=== PATIENT | male | born 1955 | race Caucasian/White ===

== ENCOUNTER 2017-12-07 18:26 | Inpatient (IN) | payer MEDICARE, OTHER ==
[~2017-12-07] VITALS: Ht 180.3 cm; Wt 57.3 kg
[2017-12-07] MEDS ORDERED: TAMS0.4C32 PO (18:55)
[2017-12-07] MEDS ORDERED: ATEN25TA PO (18:55)
[2017-12-07] MEDS ORDERED: INSLAN SQ (18:55)
[2017-12-07] MEDS ORDERED: LORA0.5T2 PO (18:55)
[2017-12-07] MEDS ORDERED: DOCU250C91 PO (18:55)
[2017-12-07] MEDS ORDERED: PARO20TA24 PO (18:55)
[2017-12-07] MEDS ORDERED: FINA5TAB41 PO (18:55)
[2017-12-07] MEDS ORDERED: MULT-248 PO (18:55)
[2017-12-07] MEDS ORDERED: BENZ1TAB10 PO (18:55)
[2017-12-07 19:18] LABS: BASOPHILS % (AUTO) 0.7 % (0.0-2.0); EOSINOPHILS % (AUTO) 0.6 % (1.0-6.0); HEMATOCRIT 44.8 % (41-53); HEMOGLOBIN 15.5 g/dL (13.5-17.5); LYMPHOCYTES # (AUTO) 3.2 K/uL (1.0-4.8); LYMPHOCYTES % (AUTO) 26.4 % (22.0-44.0); MEAN CORPUSCULAR HGB CONC 34.5 G/dL (31.0-37.0); MEAN CORPUSCULAR VOLUME 95 fL (80-100); MONOCYTES # (AUTO) 0.8 K/uL (0.1-1.0); MONOCYTES % (AUTO) 6.6 % (2.0-9.0); NEUTROPHILS % (AUTO) 65.7 % (40.0-70.0); PLATELET COUNT (AUTO) 265 K/uL (150-450); RED CELL DISTRIBUTION WIDTH 12.5 % (11.5-14.5)
[2017-12-07 19:19] LABS: GLUCOSE,POINT OF CARE 162 MG/DL (70-110)
[2017-12-07 19:26] LABS: ANION GAP 8 mmol/L (8-16); CALCIUM, TOTAL 10.6 mg/dL (8.8-10.5); CARBON DIOXIDE 29 mmol/L (22-29); CHLORIDE 108 mmol/L (98-107); CREATININE 0.98 mg/dL (0.60-1.30); GLOMERULAR FILTR. RATE CALC > 60 mL/min (>60); GLUCOSE,RANDOM 166 mg/dL (70-110); POTASSIUM 4.8 mmol/L (3.5-5.1); SODIUM SERUM 145 mmol/L (136-145); UREA NITROGEN, BLOOD 34 mg/dL (7-18)
[2017-12-07] MEDS ORDERED: HALOPERIDOL LACTATE 5 MG/ML VIAL IM ONE (19:30)
[2017-12-07] MEDS ORDERED: LORazepam 2 MG/ML VIAL IM ONE (19:30)
[2017-12-07 19:33] LABS: ALANINE AMINOTRANSFERASE 71 U/L (12-78); ALBUMIN 4.4 g/dL (3.4-5.0); ALKALINE PHOSPHATASE 137 U/L (46-116); ASPARTATE AMINOTRANSFERASE 42 U/L (15-37); BILIRUBIN,TOTAL 0.5 mg/dL (0.1-1.0)
[2017-12-07] MEDS ORDERED: HALOPERIDOL 5 MG TABLET PO PRN (20:30)
[2017-12-07 21:36] LABS: CHOL/HDL RATIO 2.2 (4.2-7.3); CHOLESTEROL 176 mg/dL (131-200); FREE T4 (FREE THYROXINE) 0.95 ng/dL (0.76-1.46); HDL CHOLESTEROL 81 mg/dL (40-60); LDL CHOL (CALC.) 47 mg/dL (0-130); TRIGLYCERIDES 241 mg/dL (15-150)
[2017-12-07] MEDS: ZOLPIDEM TARTRATE 10 MG TABLET PO PRN (21:48)
[2017-12-08 00:20] VITALS: BP 110/76
[2017-12-08 08:30] VITALS: BP 106/76
[2017-12-08] MEDS: LORazepam 1 MG TABLET PO PRN (14:27)
[2017-12-08] MEDS: NICOTINE 21 MG/24 HOUR PATCH TD SCH (14:30)
[2017-12-08 16:08] VITALS: BP 127/74
[2017-12-08] MEDS ORDERED: PROMETHAZINE HCL 25 MG TABLET PO PRN (16:45)
[2017-12-08] MEDS ORDERED: GuaiFENesin/D-METHORPHAN [SUGAR-FREE] 200-20MG/10 ML SYRUP UDCUP PO PRN (16:45)
[2017-12-08] MEDS ORDERED: MAGNESIUM HYDROXIDE SUSPENSION 30 ML UDCUP PO PRN (16:45)
[2017-12-08] MEDS ORDERED: MAG HYDROX/AL HYDROX/SIMETH ES 30 ML SUSPENSION UDCUP PO PRN (16:45)
[2017-12-08] MEDS ORDERED: LOPERAMIDE HCL 2 MG CAPSULE PO PRN (16:45)
[2017-12-08] MEDS ORDERED: ACETAMINOPHEN 325 MG TABLET PO PRN (16:45)
[2017-12-08] MEDS: THIAMINE HCL 100 MG TABLET PO SCH (18:32)
[2017-12-08] MEDS: OLANZapine 10 MG RAPDIS TABLET PO SCH (20:21)
[2017-12-08] MEDS ORDERED: BENZOCAINE/MENTHOL LOZENGE MM PRN (22:30)
[2017-12-08] MEDS ORDERED: CloNIDine HCL 0.1 MG TABLET PO PRN (22:30)
[2017-12-08] MEDS ORDERED: IBUPROFEN 600 MG TABLET PO PRN (22:30)
[2017-12-08] MEDS ORDERED: BACITRACIN 28.4 GM OINTMENT TP PRN (22:30)
[2017-12-08] MEDS ORDERED: ALBUTEROL SULFATE HFA 90 MCG/PUFF 8 GM INHALER IH PRN (22:30)
[2017-12-08] MEDS ORDERED: PETROLATUM,WHITE 71 GM JELLY TP PRN (22:30)
[2017-12-08] MEDS ORDERED: ONDANSETRON HCL 4 MG TABLET PO PRN (22:30)
[2017-12-09] MEDS: FOLIC ACID 1 MG TABLET PO SCH (08:28)
[2017-12-09] MEDS: THIAMINE HCL 100 MG TABLET PO SCH ×2 (08:28→17:20)
[2017-12-09] MEDS: FINASTERIDE 5 MG TABLET PO SCH (08:29)
[2017-12-09] MEDS: TAMSULOSIN HCL 0.4 MG CAPSULE PO SCH (08:29)
[2017-12-09] MEDS: NALTREXONE HCL 50 MG TABLET PO SCH (08:29)
[2017-12-09] MEDS: NICOTINE 21 MG/24 HOUR PATCH TD SCH (08:29)
[2017-12-09] MEDS: FLUoxetine HCL 20 MG CAPSULE PO SCH (08:29)
[2017-12-09] MEDS: ATENOLOL 25 MG TABLET PO SCH (08:29)
[2017-12-09] MEDS: MULTIVITAMINS WITH MINERALS, THERAPEUTIC TABLET PO SCH (08:31)
[2017-12-09] MEDS: LORazepam 1 MG TABLET PO PRN ×2 (08:32→13:52)
[2017-12-09] MEDS: BENZTROPINE MESYLATE 1 MG TABLET PO SCH ×3 (08:32→17:20)
[2017-12-09] MEDS ORDERED: MULTIVITAMINS WITH MINERALS, THERAPEUTIC TABLET PO SCH (09:00)
[2017-12-09] MEDS: HydrOXYzine PAMOATE 50 MG CAPSULE PO PRN ×2 (09:03→13:52)
[2017-12-09] MEDS: OLANZapine 5 MG RAPDIS TABLET PO PRN ×2 (09:03→13:52)
[2017-12-09 09:44] LABS: GLUCOMETER DEV NAME(LOC) 3EX 1; GLUCOSE,POINT OF CARE 194 MG/DL (70-110)
[2017-12-09] MEDS: INSULIN GLARGINE,HUM.REC.ANLOG 100 UNITS/ML SQ SCH (09:46)
[2017-12-09 16:30] VITALS: BP 133/77
[2017-12-09 18:23] LABS: GLUCOMETER DEV NAME(LOC) 3EX 1; GLUCOSE,POINT OF CARE 176 MG/DL (70-110)
[2017-12-09] MEDS ORDERED: DEXTROSE 50%-WATER 25 GM/50 ML SYRINGE IVP PRN (20:00)
[2017-12-09] MEDS: OLANZapine 10 MG RAPDIS TABLET PO SCH (20:18)
[2017-12-09 21:58] LABS: GLUCOMETER DEV NAME(LOC) 3EX 1; GLUCOSE,POINT OF CARE 147 MG/DL (70-110)
[2017-12-09] MEDS: ZOLPIDEM TARTRATE 10 MG TABLET PO PRN (22:40)
[2017-12-09] MEDS: INSULIN LISPRO 100 UNITS/ML SQ PRN (23:18)
[2017-12-10 08:30] VITALS: BP 99/59
[2017-12-10] MEDS: THIAMINE HCL 100 MG TABLET PO SCH ×2 (08:59→17:40)
[2017-12-10] MEDS: FINASTERIDE 5 MG TABLET PO SCH (08:59)
[2017-12-10] MEDS: MULTIVITAMINS WITH MINERALS, THERAPEUTIC TABLET PO SCH (08:59)
[2017-12-10] MEDS: FOLIC ACID 1 MG TABLET PO SCH (08:59)
[2017-12-10] MEDS: TAMSULOSIN HCL 0.4 MG CAPSULE PO SCH (08:59)
[2017-12-10] MEDS: FLUoxetine HCL 20 MG CAPSULE PO SCH (08:59)
[2017-12-10] MEDS: NALTREXONE HCL 50 MG TABLET PO SCH (08:59)
[2017-12-10] MEDS: BENZTROPINE MESYLATE 1 MG TABLET PO SCH ×3 (08:59→17:40)
[2017-12-10] MEDS: INSULIN GLARGINE,HUM.REC.ANLOG 100 UNITS/ML SQ SCH (09:22)
[2017-12-10] MEDS: NICOTINE 21 MG/24 HOUR PATCH TD SCH (09:23)
[2017-12-10 11:18] LABS: GLUCOMETER DEV NAME(LOC) 3EX 1; GLUCOSE,POINT OF CARE 149 MG/DL (70-110)
[2017-12-10] MEDS: ATENOLOL 25 MG TABLET PO SCH (11:19)
[2017-12-10] MEDS: INSULIN LISPRO 100 UNITS/ML SQ PRN (11:21)
[2017-12-10 12:20] VITALS: BP 113/71
[2017-12-10] MEDS: LORazepam 1 MG TABLET PO PRN (12:24)
[2017-12-10] MEDS: OLANZapine 5 MG RAPDIS TABLET PO PRN (12:24)
[2017-12-10 16:08] VITALS: BP 129/60
[2017-12-10 17:43] LABS: GLUCOMETER DEV NAME(LOC) 3EX 1; GLUCOSE,POINT OF CARE 123 MG/DL (70-110)
[2017-12-10] MEDS: OLANZapine 10 MG RAPDIS TABLET PO SCH (21:53)
[2017-12-11 00:43] VITALS: BP 116/58
[2017-12-11 05:44] LABS: GLUCOMETER DEV NAME(LOC) 3EI C; GLUCOSE,POINT OF CARE 112 MG/DL (70-110)
[2017-12-11] MEDS: NICOTINE 21 MG/24 HOUR PATCH TD SCH (07:44)
[2017-12-11] MEDS: FOLIC ACID 1 MG TABLET PO SCH (07:45)
[2017-12-11] MEDS: NALTREXONE HCL 50 MG TABLET PO SCH (07:45)
[2017-12-11] MEDS: MULTIVITAMINS WITH MINERALS, THERAPEUTIC TABLET PO SCH (07:45)
[2017-12-11] MEDS: OLANZapine 5 MG RAPDIS TABLET PO PRN ×2 (07:45→11:56)
[2017-12-11] MEDS: LORazepam 1 MG TABLET PO PRN ×2 (07:45→11:56)
[2017-12-11] MEDS: BENZTROPINE MESYLATE 1 MG TABLET PO SCH ×3 (07:45→16:03)
[2017-12-11] MEDS: ATENOLOL 25 MG TABLET PO SCH (07:45)
[2017-12-11] MEDS: FINASTERIDE 5 MG TABLET PO SCH (07:45)
[2017-12-11] MEDS: FLUoxetine HCL 20 MG CAPSULE PO SCH (07:45)
[2017-12-11] MEDS: THIAMINE HCL 100 MG TABLET PO SCH ×2 (07:45→16:03)
[2017-12-11] MEDS: TAMSULOSIN HCL 0.4 MG CAPSULE PO SCH (07:45)
[2017-12-11] MEDS: HydrOXYzine PAMOATE 50 MG CAPSULE PO PRN ×2 (07:48→11:56)
[2017-12-11 08:00] VITALS: BP 111/54
[2017-12-11] MEDS: INSULIN GLARGINE,HUM.REC.ANLOG 100 UNITS/ML SQ SCH (08:00)
[2017-12-11 11:33] LABS: GLUCOMETER DEV NAME(LOC) 3EX 1; GLUCOSE,POINT OF CARE 190 MG/DL (70-110)
[2017-12-11 16:35] VITALS: BP 125/78
[2017-12-11 17:08] LABS: GLUCOMETER DEV NAME(LOC) 3EX 1; GLUCOSE,POINT OF CARE 150 MG/DL (70-110)
[2017-12-11] MEDS: INSULIN LISPRO 100 UNITS/ML SQ PRN ×2 (17:24→20:50)
[2017-12-11] MEDS: OLANZapine 10 MG RAPDIS TABLET PO SCH (20:48)
[2017-12-11 20:54] LABS: GLUCOMETER DEV NAME(LOC) 3EX 1; GLUCOSE,POINT OF CARE 188 MG/DL (70-110)
[2017-12-11] MEDS: ZOLPIDEM TARTRATE 10 MG TABLET PO PRN (23:06)
[2017-12-12 00:34] VITALS: BP 113/60
[2017-12-12] MEDS: NALTREXONE HCL 50 MG TABLET PO SCH (09:32)
[2017-12-12] MEDS: FOLIC ACID 1 MG TABLET PO SCH (09:32)
[2017-12-12] MEDS: TAMSULOSIN HCL 0.4 MG CAPSULE PO SCH (09:32)
[2017-12-12] MEDS: FLUoxetine HCL 20 MG CAPSULE PO SCH (09:32)
[2017-12-12] MEDS: MULTIVITAMINS WITH MINERALS, THERAPEUTIC TABLET PO SCH (09:32)
[2017-12-12] MEDS: ATENOLOL 25 MG TABLET PO SCH (09:32)
[2017-12-12] MEDS: BENZTROPINE MESYLATE 1 MG TABLET PO SCH ×4 (09:32→20:25)
[2017-12-12] MEDS: FINASTERIDE 5 MG TABLET PO SCH (09:32)
[2017-12-12] MEDS: THIAMINE HCL 100 MG TABLET PO SCH ×2 (09:32→16:29)
[2017-12-12] MEDS: NICOTINE 21 MG/24 HOUR PATCH TD SCH (09:39)
[2017-12-12] MEDS: INSULIN GLARGINE,HUM.REC.ANLOG 100 UNITS/ML SQ SCH (10:14)
[2017-12-12 11:45] LABS: GLUCOMETER DEV NAME(LOC) 3EX 1; GLUCOSE,POINT OF CARE 178 MG/DL (70-110)
[2017-12-12] MEDS: INSULIN LISPRO 100 UNITS/ML SQ PRN ×2 (11:50→22:12)
[2017-12-12 15:30] VITALS: BP 119/60
[2017-12-12 16:00] VITALS: BP 119/60
[2017-12-12] MEDS: LORazepam 1 MG TABLET PO PRN (19:14)
[2017-12-12] MEDS: OLANZapine 10 MG RAPDIS TABLET PO SCH (20:25)
[2017-12-12 20:34] LABS: GLUCOMETER DEV NAME(LOC) 3EX 1; GLUCOSE,POINT OF CARE 147 MG/DL (70-110)
[2017-12-13 06:09] LABS: GLUCOMETER DEV NAME(LOC) 3EI C; GLUCOSE,POINT OF CARE 72 MG/DL (70-110)
[2017-12-13] MEDS: MULTIVITAMINS WITH MINERALS, THERAPEUTIC TABLET PO SCH (09:00)
[2017-12-13] MEDS: BENZTROPINE MESYLATE 1 MG TABLET PO SCH ×2 (09:00→20:43)
[2017-12-13] MEDS: FOLIC ACID 1 MG TABLET PO SCH (09:00)
[2017-12-13] MEDS: NALTREXONE HCL 50 MG TABLET PO SCH (09:00)
[2017-12-13] MEDS: THIAMINE HCL 100 MG TABLET PO SCH ×2 (09:01→16:29)
[2017-12-13] MEDS: FINASTERIDE 5 MG TABLET PO SCH (09:01)
[2017-12-13] MEDS: FLUoxetine HCL 20 MG CAPSULE PO SCH (09:01)
[2017-12-13] MEDS: TAMSULOSIN HCL 0.4 MG CAPSULE PO SCH (09:02)
[2017-12-13] MEDS: ATENOLOL 25 MG TABLET PO SCH (09:02)
[2017-12-13] MEDS: NICOTINE 21 MG/24 HOUR PATCH TD SCH (09:09)
[2017-12-13] MEDS: INSULIN GLARGINE,HUM.REC.ANLOG 100 UNITS/ML SQ SCH (09:11)
[2017-12-13 11:53] LABS: GLUCOMETER DEV NAME(LOC) 3EX 1; GLUCOSE,POINT OF CARE 91 MG/DL (70-110)
[2017-12-13 16:13] LABS: GLUCOMETER DEV NAME(LOC) 3EX 1; GLUCOSE,POINT OF CARE 93 MG/DL (70-110)
[2017-12-13] MEDS: LORazepam 1 MG TABLET PO PRN ×2 (16:30→22:45)
[2017-12-13 16:46] VITALS: BP 115/68
[2017-12-13 17:53] LABS: APPEARANCE,URINE CLEAR (CLEAR); BILIRUBIN,URINE NEGATIVE (NEGATIVE); GLUCOSE, URINE (UA) NEGATIVE (NEGATIVE); KETONES,URINE TRACE mg/dL (NEGATIVE); LEUKOCYTE ESTERASE ,URINE TRACE (NEGATIVE); NITRATE,URINE NEGATIVE (NEGATIVE); OCCULT BLOOD,URINE NEGATIVE (NEGATIVE); PH,URINE 5.5 (5.0-8.0); PROTEIN,URINE NEGATIVE (NEGATIVE)
[2017-12-13 18:17] LABS: BACTERIA,URINE Moderate /HPF (None Seen); RBC,URINE 0-2 /HPF (0-2)
[2017-12-13 18:18] LABS: SQUAMOUS EPITHELIAL CELL,UR Rare /LPF (None Seen)
[2017-12-13] MEDS: OLANZapine 10 MG RAPDIS TABLET PO SCH (20:43)
[2017-12-13] MEDS: ZOLPIDEM TARTRATE 10 MG TABLET PO PRN (20:43)
[2017-12-13 20:53] LABS: GLUCOMETER DEV NAME(LOC) 3EX 1; GLUCOSE,POINT OF CARE 102 MG/DL (70-110)
[2017-12-14] MEDS: OLANZapine 5 MG RAPDIS TABLET PO PRN (00:50)
[2017-12-14 06:19] LABS: GLUCOMETER DEV NAME(LOC) 3EI C; GLUCOSE,POINT OF CARE 68 MG/DL (70-110)
[2017-12-14 06:53] LABS: GLUCOMETER DEV NAME(LOC) 3EX 1; GLUCOSE,POINT OF CARE 121 MG/DL (70-110)
[2017-12-14] MEDS: NALTREXONE HCL 50 MG TABLET PO SCH (08:57)
[2017-12-14] MEDS: BENZTROPINE MESYLATE 1 MG TABLET PO SCH (08:57)
[2017-12-14] MEDS: FOLIC ACID 1 MG TABLET PO SCH (08:57)
[2017-12-14] MEDS: ATENOLOL 25 MG TABLET PO SCH (08:57)
[2017-12-14] MEDS: MULTIVITAMINS WITH MINERALS, THERAPEUTIC TABLET PO SCH (08:57)
[2017-12-14] MEDS: TAMSULOSIN HCL 0.4 MG CAPSULE PO SCH (08:57)
[2017-12-14] MEDS: FINASTERIDE 5 MG TABLET PO SCH (08:57)
[2017-12-14] MEDS: FLUoxetine HCL 20 MG CAPSULE PO SCH (08:57)
[2017-12-14 09:10] VITALS: BP 92/71
[2017-12-14] MEDS: INSULIN GLARGINE,HUM.REC.ANLOG 100 UNITS/ML SQ SCH (09:20)
[2017-12-14] MEDS: THIAMINE HCL 100 MG TABLET PO SCH ×2 (09:22→15:52)
[2017-12-14] MEDS: NICOTINE 21 MG/24 HOUR PATCH TD SCH (09:27)
[2017-12-14 11:24] LABS: GLUCOMETER DEV NAME(LOC) 3EX 1; GLUCOSE,POINT OF CARE 183 MG/DL (70-110)
[2017-12-14] MEDS: INSULIN LISPRO 100 UNITS/ML SQ PRN ×2 (11:32→21:43)
[2017-12-14] MEDS ORDERED: FLUO-191 PO (16:17)
[2017-12-14] MEDS ORDERED: NALT50TA PO (16:17)
[2017-12-14 17:04] LABS: GLUCOMETER DEV NAME(LOC) 3EX 1; GLUCOSE,POINT OF CARE 61 MG/DL (70-110)
[2017-12-14] MEDS ORDERED: ARIP20TA PO (17:11)
[2017-12-14 17:34] LABS: GLUCOMETER DEV NAME(LOC) 3EX 1; GLUCOSE,POINT OF CARE 158 MG/DL (70-110)
[2017-12-14 17:48] VITALS: BP 107/65
[2017-12-14] MEDS: ZOLPIDEM TARTRATE 10 MG TABLET PO PRN (21:13)
[2017-12-14] MEDS: LORazepam 1 MG TABLET PO PRN (21:14)
[2017-12-14 21:34] LABS: GLUCOMETER DEV NAME(LOC) 3EX 1; GLUCOSE,POINT OF CARE 148 MG/DL (70-110)
[2017-12-15 00:44] VITALS: BP 107/67
[2017-12-15] MEDS: LORazepam 1 MG TABLET PO PRN ×3 (01:22→15:04)
[2017-12-15 05:44] LABS: GLUCOMETER DEV NAME(LOC) 3EI C; GLUCOSE,POINT OF CARE 110 MG/DL (70-110)
[2017-12-15] MEDS: FOLIC ACID 1 MG TABLET PO SCH (08:02)
[2017-12-15] MEDS: ATENOLOL 25 MG TABLET PO SCH (08:02)
[2017-12-15] MEDS: NALTREXONE HCL 50 MG TABLET PO SCH (08:02)
[2017-12-15] MEDS: THIAMINE HCL 100 MG TABLET PO SCH ×2 (08:02→16:24)
[2017-12-15] MEDS: TAMSULOSIN HCL 0.4 MG CAPSULE PO SCH (08:02)
[2017-12-15] MEDS: MULTIVITAMINS WITH MINERALS, THERAPEUTIC TABLET PO SCH (08:02)
[2017-12-15] MEDS: ARIPiprazole 10 MG TABLET PO SCH (08:02)
[2017-12-15] MEDS: FINASTERIDE 5 MG TABLET PO SCH (08:02)
[2017-12-15] MEDS: FLUoxetine HCL 20 MG CAPSULE PO SCH (08:03)
[2017-12-15] MEDS: NICOTINE 21 MG/24 HOUR PATCH TD SCH (08:05)
[2017-12-15 08:36] VITALS: BP 99/65
[2017-12-15 09:09] LABS: GLUCOMETER DEV NAME(LOC) 3EX 1; GLUCOSE,POINT OF CARE 216 MG/DL (70-110)
[2017-12-15] MEDS: INSULIN GLARGINE,HUM.REC.ANLOG 100 UNITS/ML SQ SCH (10:23)
[2017-12-15] MEDS: INSULIN LISPRO 100 UNITS/ML SQ PRN (11:12)
[2017-12-15 11:13] LABS: GLUCOMETER DEV NAME(LOC) 3EX 1; GLUCOSE,POINT OF CARE 167 MG/DL (70-110)
[2017-12-15 16:23] VITALS: BP 121/76
[2017-12-15 17:20] LABS: GLUCOMETER DEV NAME(LOC) 3EX 1; GLUCOSE,POINT OF CARE 82 MG/DL (70-110)
[2017-12-15 20:19] LABS: GLUCOMETER DEV NAME(LOC) 3EX 1; GLUCOSE,POINT OF CARE 92 MG/DL (70-110)
[2017-12-16 05:44] LABS: GLUCOMETER DEV NAME(LOC) 3EI C; GLUCOSE,POINT OF CARE 101 MG/DL (70-110)
[2017-12-16] MEDS: ARIPiprazole 10 MG TABLET PO SCH (08:39)
[2017-12-16] MEDS: MULTIVITAMINS WITH MINERALS, THERAPEUTIC TABLET PO SCH (08:39)
[2017-12-16] MEDS: TAMSULOSIN HCL 0.4 MG CAPSULE PO SCH (08:40)
[2017-12-16] MEDS: THIAMINE HCL 100 MG TABLET PO SCH ×2 (08:40→17:17)
[2017-12-16] MEDS: FOLIC ACID 1 MG TABLET PO SCH (08:40)
[2017-12-16] MEDS: FLUoxetine HCL 20 MG CAPSULE PO SCH (08:40)
[2017-12-16] MEDS: NALTREXONE HCL 50 MG TABLET PO SCH (08:40)
[2017-12-16] MEDS: ATENOLOL 25 MG TABLET PO SCH (08:41)
[2017-12-16] MEDS: FINASTERIDE 5 MG TABLET PO SCH (08:41)
[2017-12-16] MEDS: INSULIN GLARGINE,HUM.REC.ANLOG 100 UNITS/ML SQ SCH (08:48)
[2017-12-16] MEDS: NICOTINE 21 MG/24 HOUR PATCH TD SCH (08:50)
[2017-12-16 09:00] VITALS: BP 109/65
[2017-12-16 11:34] LABS: GLUCOMETER DEV NAME(LOC) 3EX 1; GLUCOSE,POINT OF CARE 141 MG/DL (70-110)
[2017-12-16] MEDS: INSULIN LISPRO 100 UNITS/ML SQ PRN ×2 (11:38→18:11)
[2017-12-16 16:19] LABS: GLUCOMETER DEV NAME(LOC) 3EX 1; GLUCOSE,POINT OF CARE 168 MG/DL (70-110)
[2017-12-16 16:45] VITALS: BP 130/88
[2017-12-16 20:39] LABS: GLUCOMETER DEV NAME(LOC) 3EX 1; GLUCOSE,POINT OF CARE 91 MG/DL (70-110)
[2017-12-16] MEDS: ZOLPIDEM TARTRATE 10 MG TABLET PO PRN (21:05)
[2017-12-17 05:34] LABS: GLUCOMETER DEV NAME(LOC) 3EI C; GLUCOSE,POINT OF CARE 122 MG/DL (70-110)
[2017-12-17] MEDS: INSULIN LISPRO 100 UNITS/ML SQ PRN ×3 (06:25→21:09)
[2017-12-17] MEDS: MULTIVITAMINS WITH MINERALS, THERAPEUTIC TABLET PO SCH (08:49)
[2017-12-17] MEDS: TAMSULOSIN HCL 0.4 MG CAPSULE PO SCH (08:51)
[2017-12-17] MEDS: ARIPiprazole 10 MG TABLET PO SCH (08:51)
[2017-12-17] MEDS: FINASTERIDE 5 MG TABLET PO SCH (08:51)
[2017-12-17] MEDS: THIAMINE HCL 100 MG TABLET PO SCH ×2 (08:51→16:46)
[2017-12-17] MEDS: FLUoxetine HCL 20 MG CAPSULE PO SCH (08:51)
[2017-12-17] MEDS: FOLIC ACID 1 MG TABLET PO SCH (08:51)
[2017-12-17] MEDS: LORazepam 1 MG TABLET PO PRN (08:52)
[2017-12-17] MEDS: ATENOLOL 25 MG TABLET PO SCH (08:52)
[2017-12-17] MEDS: NALTREXONE HCL 50 MG TABLET PO SCH (08:52)
[2017-12-17 09:00] VITALS: BP 99/61
[2017-12-17] MEDS: NICOTINE 21 MG/24 HOUR PATCH TD SCH (09:02)
[2017-12-17] MEDS: INSULIN GLARGINE,HUM.REC.ANLOG 100 UNITS/ML SQ SCH (09:02)
[2017-12-17 11:33] LABS: GLUCOMETER DEV NAME(LOC) 3EX 1; GLUCOSE,POINT OF CARE 141 MG/DL (70-110)
[2017-12-17 16:14] LABS: GLUCOMETER DEV NAME(LOC) 3EX 1; GLUCOSE,POINT OF CARE 113 MG/DL (70-110)
[2017-12-17 16:19] VITALS: BP 115/77
[2017-12-17 21:04] LABS: GLUCOMETER DEV NAME(LOC) 3EX 1; GLUCOSE,POINT OF CARE 156 MG/DL (70-110)
[2017-12-18] MEDS: THIAMINE HCL 100 MG TABLET PO SCH (08:33)
[2017-12-18] MEDS: NALTREXONE HCL 50 MG TABLET PO SCH (08:33)
[2017-12-18] MEDS: FOLIC ACID 1 MG TABLET PO SCH (08:33)
[2017-12-18] MEDS: NICOTINE 21 MG/24 HOUR PATCH TD SCH (08:33)
[2017-12-18] MEDS: FINASTERIDE 5 MG TABLET PO SCH (08:33)
[2017-12-18] MEDS: MULTIVITAMINS WITH MINERALS, THERAPEUTIC TABLET PO SCH (08:33)
[2017-12-18] MEDS: ARIPiprazole 10 MG TABLET PO SCH (08:33)
[2017-12-18] MEDS: TAMSULOSIN HCL 0.4 MG CAPSULE PO SCH (08:33)
[2017-12-18] MEDS: FLUoxetine HCL 20 MG CAPSULE PO SCH (08:34)
[2017-12-18] MEDS: ATENOLOL 25 MG TABLET PO SCH (08:34)
[2017-12-18] MEDS: INSULIN GLARGINE,HUM.REC.ANLOG 100 UNITS/ML SQ SCH (09:25)
[2017-12-18 11:39] LABS: GLUCOMETER DEV NAME(LOC) 3EX 1; GLUCOSE,POINT OF CARE 127 MG/DL (70-110)
[2017-12-18 14:25] VITALS: BP 131/67
[2017-12-18 16:23] VITALS: BP 112/67
[2017-12-18 17:14] LABS: GLUCOMETER DEV NAME(LOC) 3EX 1; GLUCOSE,POINT OF CARE 186 MG/DL (70-110)
[2017-12-18] MEDS: INSULIN LISPRO 100 UNITS/ML SQ PRN (18:37)
[2017-12-18 21:03] LABS: GLUCOMETER DEV NAME(LOC) 3EX 1; GLUCOSE,POINT OF CARE 70 MG/DL (70-110)
[2017-12-19] MEDS: ZOLPIDEM TARTRATE 10 MG TABLET PO PRN (00:05)
[2017-12-19 06:04] LABS: GLUCOMETER DEV NAME(LOC) 3EI C; GLUCOSE,POINT OF CARE 106 MG/DL (70-110)
[2017-12-19 08:05] VITALS: BP 107/62
[2017-12-19] MEDS: NALTREXONE HCL 50 MG TABLET PO SCH (08:45)
[2017-12-19] MEDS: LACTOBAC ACID/BULG/BIFID/THERM TABLET PO SCH (08:45)
[2017-12-19] MEDS: FLUoxetine HCL 20 MG CAPSULE PO SCH (08:45)
[2017-12-19] MEDS: TAMSULOSIN HCL 0.4 MG CAPSULE PO SCH (08:45)
[2017-12-19] MEDS: MULTIVITAMINS WITH MINERALS, THERAPEUTIC TABLET PO SCH (08:45)
[2017-12-19] MEDS: FINASTERIDE 5 MG TABLET PO SCH (08:46)
[2017-12-19] MEDS: ATENOLOL 25 MG TABLET PO SCH (08:46)
[2017-12-19] MEDS: ARIPiprazole 10 MG TABLET PO SCH (08:46)
[2017-12-19] MEDS: NICOTINE 21 MG/24 HOUR PATCH TD SCH (08:46)
[2017-12-19] MEDS: LEVOFLOXACIN 250 MG TABLET PO SCH (08:46)
[2017-12-19] MEDS: INSULIN GLARGINE,HUM.REC.ANLOG 100 UNITS/ML SQ SCH (08:53)
[2017-12-19 11:13] LABS: GLUCOMETER DEV NAME(LOC) 3EX 1; GLUCOSE,POINT OF CARE 165 MG/DL (70-110)
[2017-12-19] MEDS: INSULIN LISPRO 100 UNITS/ML SQ PRN ×2 (11:54→20:39)
[2017-12-19] MEDS: LORazepam 1 MG TABLET PO PRN (15:51)
[2017-12-19 16:20] VITALS: BP 115/78
[2017-12-19 16:48] LABS: GLUCOMETER DEV NAME(LOC) 3EX 1; GLUCOSE,POINT OF CARE 138 MG/DL (70-110)
[2017-12-19 20:34] LABS: GLUCOMETER DEV NAME(LOC) 3EX 1; GLUCOSE,POINT OF CARE 155 MG/DL (70-110)
[2017-12-20 01:20] VITALS: BP 98/72
[2017-12-20 05:34] LABS: GLUCOMETER DEV NAME(LOC) 3EI C; GLUCOSE,POINT OF CARE 122 MG/DL (70-110)
[2017-12-20 08:45] VITALS: BP 102/52
[2017-12-20] MEDS: NALTREXONE HCL 50 MG TABLET PO SCH (08:53)
[2017-12-20] MEDS: MULTIVITAMINS WITH MINERALS, THERAPEUTIC TABLET PO SCH (08:53)
[2017-12-20] MEDS: LEVOFLOXACIN 250 MG TABLET PO SCH (08:54)
[2017-12-20] MEDS: FLUoxetine HCL 20 MG CAPSULE PO SCH (08:54)
[2017-12-20] MEDS: NICOTINE 21 MG/24 HOUR PATCH TD SCH (08:54)
[2017-12-20] MEDS: LACTOBAC ACID/BULG/BIFID/THERM TABLET PO SCH (08:54)
[2017-12-20] MEDS: ARIPiprazole 10 MG TABLET PO SCH (08:54)
[2017-12-20] MEDS: ATENOLOL 25 MG TABLET PO SCH (08:54)
[2017-12-20] MEDS: TAMSULOSIN HCL 0.4 MG CAPSULE PO SCH (08:54)
[2017-12-20] MEDS: FINASTERIDE 5 MG TABLET PO SCH (08:54)
[2017-12-20 11:28] LABS: GLUCOMETER DEV NAME(LOC) 3EX 1; GLUCOSE,POINT OF CARE 118 MG/DL (70-110)
[2017-12-20] MEDS: INSULIN GLARGINE,HUM.REC.ANLOG 100 UNITS/ML SQ SCH (12:33)
[2017-12-20 16:29] VITALS: BP 119/76
[2017-12-20 17:14] LABS: GLUCOMETER DEV NAME(LOC) 3EX 1; GLUCOSE,POINT OF CARE 106 MG/DL (70-110)
[2017-12-20] MEDS: LORazepam 1 MG TABLET PO PRN (18:03)
[2017-12-20] MEDS: INSULIN LISPRO 100 UNITS/ML SQ PRN (20:03)
[2017-12-20 20:14] LABS: GLUCOMETER DEV NAME(LOC) 3EX 1; GLUCOSE,POINT OF CARE 147 MG/DL (70-110)
[2017-12-21 05:40] LABS: GLUCOMETER DEV NAME(LOC) 3EI C; GLUCOSE,POINT OF CARE 71 MG/DL (70-110)
[2017-12-21] MEDS: MULTIVITAMINS WITH MINERALS, THERAPEUTIC TABLET PO SCH (09:07)
[2017-12-21] MEDS: LEVOFLOXACIN 250 MG TABLET PO SCH (09:07)
[2017-12-21] MEDS: TAMSULOSIN HCL 0.4 MG CAPSULE PO SCH (09:07)
[2017-12-21] MEDS: FLUoxetine HCL 20 MG CAPSULE PO SCH (09:07)
[2017-12-21] MEDS: FINASTERIDE 5 MG TABLET PO SCH (09:07)
[2017-12-21] MEDS: ARIPiprazole 10 MG TABLET PO SCH (09:07)
[2017-12-21] MEDS: NALTREXONE HCL 50 MG TABLET PO SCH (09:07)
[2017-12-21] MEDS: LACTOBAC ACID/BULG/BIFID/THERM TABLET PO SCH (09:07)
[2017-12-21 09:10] VITALS: BP 96/55
[2017-12-21] MEDS: NICOTINE 21 MG/24 HOUR PATCH TD SCH (09:17)
[2017-12-21] MEDS: INSULIN GLARGINE,HUM.REC.ANLOG 100 UNITS/ML SQ SCH (09:56)
[2017-12-21 10:11] VITALS: BP 101/61
[2017-12-21] MEDS: ATENOLOL 25 MG TABLET PO SCH (11:00)
[2017-12-21 11:34] LABS: GLUCOMETER DEV NAME(LOC) 3EX 1; GLUCOSE,POINT OF CARE 138 MG/DL (70-110)
[2017-12-21 16:42] VITALS: BP 109/68
[2017-12-21] MEDS: INSULIN LISPRO 100 UNITS/ML SQ PRN (17:27)
[2017-12-21 17:29] LABS: GLUCOMETER DEV NAME(LOC) 3EX 1; GLUCOSE,POINT OF CARE 143 MG/DL (70-110)
[2017-12-21] MEDS: LORazepam 1 MG TABLET PO PRN (18:32)
[2017-12-21] MEDS: ZOLPIDEM TARTRATE 10 MG TABLET PO PRN (20:43)
[2017-12-21 21:09] LABS: GLUCOMETER DEV NAME(LOC) 3EX 1; GLUCOSE,POINT OF CARE 96 MG/DL (70-110)
[2017-12-21 21:29] LABS: APPEARANCE,URINE CLEAR (CLEAR); BILIRUBIN,URINE NEGATIVE (NEGATIVE); GLUCOSE, URINE (UA) NEGATIVE (NEGATIVE); KETONES,URINE NEGATIVE (NEGATIVE); LEUKOCYTE ESTERASE ,URINE NEGATIVE (NEGATIVE); NITRATE,URINE NEGATIVE (NEGATIVE); OCCULT BLOOD,URINE NEGATIVE (NEGATIVE); PROTEIN,URINE NEGATIVE (NEGATIVE); UROBILINOGEN,URINE 0.2 mg/dL (<=1.0)
[2017-12-21 22:20] VITALS: BP 140/77
[2017-12-22 05:35] LABS: GLUCOMETER DEV NAME(LOC) 3EI C; GLUCOSE,POINT OF CARE 80 MG/DL (70-110)
[2017-12-22] MEDS: LORazepam 1 MG TABLET PO PRN ×2 (07:57→12:33)
[2017-12-22] MEDS: MULTIVITAMINS WITH MINERALS, THERAPEUTIC TABLET PO SCH (07:57)
[2017-12-22] MEDS: FINASTERIDE 5 MG TABLET PO SCH (07:58)
[2017-12-22] MEDS: FLUoxetine HCL 20 MG CAPSULE PO SCH (07:58)
[2017-12-22] MEDS: LACTOBAC ACID/BULG/BIFID/THERM TABLET PO SCH (07:58)
[2017-12-22] MEDS: NICOTINE 21 MG/24 HOUR PATCH TD SCH (07:58)
[2017-12-22] MEDS: TAMSULOSIN HCL 0.4 MG CAPSULE PO SCH (07:58)
[2017-12-22] MEDS: ARIPiprazole 10 MG TABLET PO SCH (07:58)
[2017-12-22] MEDS: ATENOLOL 25 MG TABLET PO SCH (07:58)
[2017-12-22] MEDS: NALTREXONE HCL 50 MG TABLET PO SCH (07:58)
[2017-12-22 08:00] VITALS: BP 153/88
[2017-12-22] MEDS: INSULIN GLARGINE,HUM.REC.ANLOG 100 UNITS/ML SQ SCH (08:04)
[2017-12-22 11:34] LABS: GLUCOMETER DEV NAME(LOC) 3EC; GLUCOSE,POINT OF CARE 116 MG/DL (70-110)
[2017-12-22 16:14] LABS: GLUCOMETER DEV NAME(LOC) 3EX 1; GLUCOSE,POINT OF CARE 122 MG/DL (70-110)
[2017-12-22] MEDS ORDERED: LACT1TAB20 PO (17:03)
[2017-12-22 19:19] VITALS: BP 110/68
== END 2017-12-22 17:00 | DRG 881 ==
LOC: EDBD 18:27 → EMS 18:27 → 3EX 22:07
PROVIDERS: ADMIT Psychiatry & Neurology Psychiatry; ATTEND Psychiatry & Neurology Psychiatry
DX: F32.9 Major depressive disorder, single episode, unspecified (principal); B18.2 Chronic viral hepatitis C; Z93.0 Tracheostomy status; E11.65 Type 2 diabetes mellitus with hyperglycemia; N39.0 Urinary tract infection, site not specified; D72.829 Elevated white blood cell count, unspecified; E78.1 Pure hyperglyceridemia; E78.5 Hyperlipidemia, unspecified; E83.52 Hypercalcemia; F29 Unspecified psychosis not due to a substance or known physiological condition; I10 Essential (primary) hypertension; Z87.891 Personal history of nicotine dependence; Z88.8 Allergy status to other drugs, medicaments and biological substances
CPT/HCPCS: 83036; 84439; 84443; 87081; 87086; 92610; 96372; 97110; 97162; 97167; 97530; 99285; G0480; J1630; J1815; J2060